=== PATIENT | male | born 1945 | race Caucasian/White ===

== ENCOUNTER → 2017-04-20 15:37 | Emergency (ER) | payer MEDICARE ==
[~2017-04-20 15:37] MED LIST: Tetan/Diph/Pertus SYR(Tdap)* 0.5 ML SYR(BOOSTRIX) use SYR IM ONE
--- NOTE | 2017-04-20 16:50 | RAD ---
HISTORY: Table saw injury, first digit of right hand COMPARISONS: None VIEWS: 3, Frontal, lateral, and oblique views of the first digit of the right hand FINDINGS: BONE DENSITY: Normal. BONES: There is no displaced fracture. JOINTS: There is no arthropathy. ALIGNMENT: There is no dislocation. SOFT TISSUES: Unremarkable. OTHER FINDINGS: None. IMPRESSION: NO ACUTE OSSEOUS INJURY. IF SYMPTOMS PERSIST, RECOMMEND REPEAT IMAGING.
--- NOTE | 2017-04-20 18:51 | ED ---
Upper Extremity Pain - HPI Summary HPI Summary: Rt thumb injury prior to arrival - was working on a table saw and the wood kicked and next thing he knew, he cut his thumb. Bleeding - controlled w/ pressure. Denies numbness, tingling, weakness. Unsure of last tetanus vaccine. No other in injuries to report. - History of Current Complaint Chief Complaint: EDLacSutureRecheck Stated Complaint: CUT THUMB IN TABLE SAW Time Seen by Provider: 04/20/17 16:15 Hx Obtained From: Patient - Allergies/Home Medications Allergies/Adverse Reactions: Allergies Allergy/AdvReac Type Severity Reaction Status Date / Time No Known Allergies Allergy Verified 04/20/17 15:47 PMH/Surg Hx/FS Hx/Imm Hx Previously Healthy: Yes Endocrine/Hematology History: Denies: Hx Anticoagulant Therapy - takes ASA daily, Hx Blood Disorders Cardiovascular History: Reports: Hx Coronary Artery Disease - 2 stents placed in past GI History: Reports: Hx Hiatal Hernia - hernia repair Musculoskeletal History: Reports: Hx Orthopedic Injury - L knee replacement w/ Dr. Pimentel - Surgical History Surgery Procedure, Year, and Place: L knee surgery, and hernia surgery - Immunization History Date of Tetanus Vaccine: 2011 Date of Influenza Vaccine: none Infectious Disease History: No Infectious Disease History: Denies: Traveled Outside the [place] in Last 30 Days - Social History Lives: With Family Alcohol Use: Rare Hx Substance Use: No Substance Use Type: Reports: None Hx Tobacco Use: No Smoking Status (MU): Never Smoked Tobacco Review of Systems Constitutional: Negative Negative: Fatigue Negative: Chest Pain Negative: Shortness Of Breath Negative: Nausea Musculoskeletal: Other - see HPI Negative: Decreased ROM Skin: Other - see HPI Neurological: Negative Negative: Weakness, Paresthesia, Numbness Psychological: Normal All Other Systems Reviewed And Are Negative: Yes Physical Exam Triage Information Reviewed: Yes Vital Signs On Initial Exam: Initial Vitals Temp Pulse Resp BP Pulse Ox 98.4 F 77 18 143/80 96 04/20/17 15:47 04/20/17 15:47 04/20/17 15:47 04/20/17 15:47 04/20/17 15:47 Vital Signs Reviewed: Yes Appearance: Positive: Well-Appearing, No Pain Distress, Well-Nourished Skin: Positive: Warm - linear laceration w/ jagged edges over palmar aspect of Rt thumb and slightly along cuticle Head/Face: Positive: Normal Head/Face Inspection Eyes: Positive: Normal, EOMI ENT: Positive: Hearing grossly normal Respiratory/Lung Sounds: Positive: Breath Sounds Present Cardiovascular: Positive: Normal, Pulses are Symmetrical in both Upper and Lower Extremities Musculoskeletal: Positive: Normal, Strength/ROM Intact Neurological: Positive: Normal, Sensory/Motor Intact, Alert, Oriented to Person Place, Time, CN Intact II-III Psychiatric: Positive: Normal Procedures - Laceration/Wound Repair 1 Location: upper extremity - Rt thumb Description: Linear - w/ jagged edges Anesthesia: Digital, 2.0%, Lido Length, Depth and Shape: 1.75cm x 4mm Betadine Prep?: Yes Irrigated w/ Saline (ccs): 250 - no tendon identified Laceration/Wound Explored: clean Closure: Single Layer Suture Type: Prolene - 5-0 Number of Sutures: 11 Layer Closure?: No Sterile Dressing Applied?: Yes - triple anbx + xeroform + gauze+coban Diagnostics - Vital Signs Vital Signs Temp Pulse Resp BP Pulse Ox 04/20/17 15:47 98.4 F 77 18 143/80 96 - Laboratory Lab Statement: Any lab studies that have been ordered have been reviewed, and results considered in the medical decision making process. Course/Dx - Course Course Of Treatment: Rt thumb laceration w/o tendon involvement and no fx - wound appears clean so no anbx were initiated. Closure w/ inpartial approximation d/t jagged edge of wound/lack of skin - to compensate for exposure of this tissue, a xerform dressing was applied. Pt educated about wound care and close f/u w/ hand specialist. Danger s/sx of when to return reviewed. - Diagnoses Provider Diagnoses: Laceration of right thumb Discharge - Discharge Plan Condition: Stable Disposition: HOME Patient Education Materials: Finger Laceration (ED) Referrals: Ladarius Tompkins MD [Medical Doctor] - Additional Instructions: Keep dressing clean, dry and intact for 48 hours. After this time, you may remove dressing - gently wash wound with soap and water then rinse well - pat dry with clean cloth and reapply triple antibiotic ointment - recover with xeroform dressing, then clean gauze, then coban wrap which may be held in place with a piece of tape. Rest, ice and elevate to reduce pain and swelling. You may take tylenol 650mg every 6 hours for pain. Follow-up with hand specialist this week. Call Saturday morning to schedule appointment. Information included here. Sutures will need to be removed in 10- 14 days or when hand specialist feels necessary. *If you develop redness, swelling, streaking, fever, purulent drainage, seek medical attention sooner.
[2017-04-20 19:17] VITALS: BP 138/72
== END | disposition home or self-care (01) ==
LOC: ED 15:37
DX: S61.011A Laceration without foreign body of right thumb without damage to nail, initial encounter (principal); W31.2XXA Contact with powered woodworking and forming machines, initial encounter; Z23 Encounter for immunization
CPT/HCPCS: 12001; 90471; 90472; 90715; 99281

== ENCOUNTER 2017-12-10 15:09 | Emergency (ER) | payer MEDICARE ==
[2017-12-10] MEDS ORDERED: NS 0.9% 1000 ML* 1,000 ML IV ONE (16:58)
[2017-12-10 17:33] LABS: ABS Basophils 0.1 10^3/ul (0-0.2); ABS Eosinophils 0.2 10^3/ul (0-0.6); ABS Lymphocytes 1.2 10^3/ul (1.0-4.8); ABS Monocytes 0.8 10^3/ul (0-0.8); ABS Neutrophils 11.1 10^3/ul (1.5-7.7); ABS Nucleated RBC 0 10^3/ul; Eosinophil % 1.5 % (0-6); Hematocrit 46 % (42-52); Hemoglobin 15.8 g/dl (14.0-18.0); Lymphocyte % 8.7 % (25-47); Mean Corpuscular HGB Conc 34 g/dl (31-36); Mean Corpuscular Hemoglobin 30 pg (27-31); Mean Corpuscular Volume 87 fL (80-94); Mean Platelet Volume 8 um3 (7.4-10.4); Nucleated Red Blood Cells % 0; Platelet Count 194 10^3/ul (150-450); Red Blood Count 5.31 10^6/ul (4.0-5.4); Red Cell Distribution Width 14 % (10.5-15); White Blood Count 13.3 10^3/ul (3.5-10.8)
[2017-12-10 17:46] LABS: EGFR Non-African American 55.7 (>60)
--- NOTE | 2017-12-10 17:57 | RAD ---
CLINICAL HISTORY: Left flank pain in a patient with a history of renal stones COMPARISON: None TECHNIQUE: Noncontrast CT examination of the abdomen and pelvis from the lung bases through the initial tuberosities. FINDINGS: VISUALIZED LUNG BASES: The visualized lung bases are grossly clear. There is no pleural effusion. ABDOMEN AND PELVIS: Evaluation of the solid organs and vasculature is limited without intravenous contrast. The homogenously attenuating spleen is slightly enlarged measuring 13.1 cm in greatest axial dimension. The liver, pancreas and adrenal glands are grossly normal in appearance. The gallbladder is normal. There are fluid density cyst in the bilateral kidneys. There are no renal calculi seen in either kidney or ureter. There is no significant hydronephrosis seen bilaterally. In the dependent portion of the urinary bladder (not directly adjacent to the ureterovesical junction) there is a 4 mm calcification. Evaluation of the gastrointestinal tract is limited without oral contrast. The small and large bowel are not distended.The patient's normal appendix is identified in the right lower quadrant measuring 6 mm in diameter with gas in the lumen.. There is no gross retroperitoneal or mesenteric lymphadenopathy. The prostate is mildly enlarged measuring 4.4 x 5.7 cm in the axial plane and 5.2 cm in the cephalocaudal projection. The abdominal aorta and iliac arteries are normal in course and diameter. There is loss of intervertebral disc at the lower thoracic and lumbar spine. There are anterior marginal osteophytes at the lower thoracic spine. IMPRESSION: 1. There are no calcifications seen in either collecting system or ureter, but there is a 4 mm calcification in the dependent portion of the urinary bladder. There is no significant hydronephrosis bilaterally. 2. Chronic and degenerative changes described in the body the report unlikely to BE directly related to the patient's current clinical presentation.
[2017-12-10 19:15] VITALS: BP 123/76
[2017-12-10 19:28] LABS: Urine Appearance Clear; Urine Blood 2+ (Negative); Urine Color Yellow; Urine Ketones Negative (Negative); Urine Protein Negative (Negative); Urine Specific Gravity 1.012 (1.010-1.030); Urine Urobilinogen Negative (Negative)
--- NOTE | 2017-12-13 16:00 | ED ---
Fadia Roberson Gabriel, scribed for Logan Rangel MD on 12/10/17 at 1700 . Abdominal Pain/Male - HPI Summary HPI Summary: This patient is a 72 year old M presenting to [facility] accompanied by his family with a chief complaint of left sided flank pain since earlier today. The patient rates the pain 8/10 in severity. Patient reports urinary frequency. Patient denies fever, hematuria, dysuria, and urinary retention. Patient states he was sitting down watching tv when symptoms began. He has a Hx of kidney stones and believes he has one currently. - History of Current Complaint Chief Complaint: EDFlankPain Stated Complaint: LT SIDE PAIN Time Seen by Provider: 12/10/17 16:53 Hx Obtained From: Patient Onset/Duration: Lasting Hours, Still Present Timing: Constant Severity Initially: Severe Severity Currently: Severe Pain Intensity: 8 Pain Scale Used: 0-10 Numeric Location: Flank - left Radiates: No Associated Signs And Symptoms: Positive: Negative - fever, hematuria, dysuria, and urinary retention. - Allergies/Home Medications Allergies/Adverse Reactions: Allergies Allergy/AdvReac Type Severity Reaction Status Date / Time No Known Allergies Allergy Verified 12/10/17 15:20 PMH/Surg Hx/FS Hx/Imm Hx Endocrine/Hematology History: Denies: Hx Anticoagulant Therapy - takes ASA daily, Hx Blood Disorders Cardiovascular History: Reports: Hx Coronary Artery Disease - 2 stents placed in past GI History: Reports: Hx Hiatal Hernia - hernia repair History: Reports: Hx Kidney Stones Musculoskeletal History: Reports: Hx Orthopedic Injury - L knee replacement w/ Dr. Pimentel - Surgical History Surgery Procedure, Year, and Place: L knee surgery, and hernia surgery - Immunization History Date of Tetanus Vaccine: 2011 Date of Influenza Vaccine: none Infectious Disease History: No Infectious Disease History: Denies: Traveled Outside the [place] in Last 30 Days - Family History Known Family History: Negative: Diabetes, Renal Disease, Respiratory Disease, Seizure Disorder - Social History Occupation: Retired Lives: With Family Alcohol Use: Rare Hx Substance Use: No Substance Use Type: Reports: None Hx Tobacco Use: No Smoking Status (MU): Never Smoked Tobacco Review of Systems Negative: Fever, Chills Negative: Erythema Negative: Sore Throat Negative: Chest Pain Negative: Shortness Of Breath, Cough Positive: Abdominal Pain - flank . Negative: Vomiting, Nausea Positive: frequency, flank pain. Negative: burning, dysuria, hematuria Negative: Myalgia, Edema Negative: Rash Neurological: Negative - dizziness All Other Systems Reviewed And Are Negative: Yes Physical Exam - Summary Physical Exam Summary: Constitutional: Well-developed, Well-nourished, Alert. (-) Distressed Skin: Warm, Dry HENT: Normocephalic; Atraumatic Eyes: Conjunctiva normal Neck: Musculoskeletal ROM normal neck. (-) JVD, (-) Stridor, (-) Tracheal deviation Cardio: Rhythm regular, rate normal, Heart sounds normal; Intact distal pulses; The pedal pulses are 2+ and symmetric. Radial pulses are 2+ and symmetric. (-) Murmur Pulmonary/Chest wall: Effort normal. (-) Respiratory distress, (-) Wheezes, (-) Rales Abd: Soft, (-) Tenderness, (-) Distension, (-) Guarding, (-) Rebound Musculoskeletal: (-) Edema Lymph: (-) Cervical adenopathy Neuro: Alert, Oriented x3 Psych: Mood and affect Normal Triage Information Reviewed: Yes Vital Signs On Initial Exam: Initial Vitals Temp Pulse Resp BP Pulse Ox 97.2 F 65 22 126/76 97 12/10/17 15:18 12/10/17 15:18 12/10/17 15:18 12/10/17 15:18 12/10/17 15:18 Vital Signs Reviewed: Yes Diagnostics - Vital Signs Vital Signs Temp Pulse Resp BP Pulse Ox 12/10/17 15:18 97.2 F 65 22 126/76 97 - Laboratory Result Diagrams: 12/10/17 17:18 12/10/17 17:18 Lab Statement: Any lab studies that have been ordered have been reviewed, and results considered in the medical decision making process. - CT CT abd/pelvis CT Interpretation Completed By: Radiologist - 1. There are no calcifications seen in either collecting system or ureter, but there is a 4 mm calcification in the dependent portion of the urinary bladder. There is no significant hydronephrosis bilaterally. 2. Chronic and degenerative changes described in the body the report unlikely to BE directly related to the patient's current clinical presentation. ED physician has reviewed this radiology report. Re-Evaluation - Re-Evaluation First Eval Re-Evaluation Time: 18:38 Change: Improved Comment: Patient is pain free. Abdominal Pain Fem Course/Dx - Course Assessment/Plan: This patient is a 72 year old M presenting to [facility] accompanied by his family with a chief complaint of left sided flank pain since earlier today. The patient rates the pain 8/10 in severity. Patient reports urinary frequency. Patient denies fever, hematuria, dysuria, and urinary retention. Patient states he was sitting down watching tv when symptoms began. He has a Hx of kidney stones and believes he has one currently. . CT ABD/ Pelvis reveals, per radiologist, 1. There are no calcifications seen in either collecting system or ureter, but there is a. 4 mm calcification in the dependent portion of the urinary bladder. There is no. significant hydronephrosis bilaterally. 2. Chronic and degenerative changes described in the body the report unlikely to BE. directly related to the patient's current clinical presentation. Test results with no significant abnormalities. In the ED course the patient was given IV fluids. The patient passed the stone while he was in the ED. Patient will be discharged and follow up from Dr. Jaramillo. The patient is agreeable with this plan. - Diagnoses Provider Diagnoses: Kidney stone Discharge - Discharge Plan Condition: Stable Disposition: HOME Referrals: Ayad Vallejo MD [Primary Care Provider] - rTae Jaramillo MD [Medical Doctor] - 3 Days Additional Instructions: RETURN TO THE EMERGENCY DEPARTMENT FOR CHANGING OR WORSENING SYMPTOMS. The documentation as recorded by the Fadia burks Gabriel accurately reflects the service I personally performed and the decisions made by , Logan Rangel MD.
== END 2017-12-10 19:13 | disposition home or self-care (01) ==
LOC: ED 15:09
DX: N20.0 Calculus of kidney (principal)
CPT/HCPCS: 36415; 74176; 80053; 81003; 81015; 83605; 83690; 85025; 86140; 96360; 99282